=== PATIENT | male | born 1960 | race Caucasian/White ===

== ENCOUNTER 2018-09-26 17:12 | Emergency (ER) | payer OTHER, MEDICAID ==
--- NOTE | 2018-09-26 18:14 | Emergency Department Record ---
History of Present Illness - General Chief Complaint: Laceration(s) Stated Complaint: LT INDEX ROTOR INJURY Time Seen by Provider: 09/26/18 18:08 Source: Patient Mode of Arrival: Ambulatory Limitations: No limitations - History of Present Illness Initial Commments: 58 yo male presents to ED for evaluation following injury to the left index finger. Patient reports that he was using router at home when he accidentally injured the index finger resulting in laceration, tissue loss, and bleeding. Patient denies the use of anticoagulation medications, denies loss of ROM on examination. 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 Tetanus is UTD. Onset/Timin -: Hour(s) Extremity Location: Left: Hand Place: Home Context: Accidental Associated Symptoms: None Treatments Prior to Arrival: Bandage - [place] Coma Scale Eye Response: (4) Open spontaneously Motor Response: (6) Obeys commands Verbal Response: (5) Oriented [place] Total: 15 - Related Data Hx Tetanus Toxoid Vaccination: Yes Year of Tetanus Vaccination: 2018 Patient Tetanus UTD (within 5 yrs): Yes Home Medications Medication Instructions Recorded Confirmed Last Taken Cyanocobalamin (Vitamin B-12) 5,000 mcg PO DAILY 09/26/18 09/26/18 Unknown [B-12 Dual Spectrum] Omeprazole 20 mg PO DAILY 09/26/18 09/26/18 Unknown Previous Rx's Medication Instructions Recorded Doxycycline Hyclate 100 mg PO BID #19 cap 09/26/18 Allergies Allergy/AdvReac Type Severity Reaction Status Date / Time Sulfa (Sulfonamide Allergy SWELLING Verified 09/26/18 17:56 Antibiotics) (GENERAL) Travel Screening - Travel/Exposure Within Last 30 Days Have you traveled within the last 30 days?: No Review of Systems Constitutional: Denies: Chills, Fever, Malaise, Night sweats Eyes: Denies: Eye discharge, Eye pain ENT: Denies: Congestion, Ear pain, Epistaxis Respiratory: Denies: Cough, Dyspnea Cardiovascular: Denies: Chest pain, Dyspnea on exertion Endocrine: Denies: Fatigue, Heat or cold intolerance Gastrointestinal: Denies: Abdominal pain, Nausea, Vomiting Genitourinary: Denies: Incontinence, Retention Musculoskeletal: Reports: Arthralgia. Denies: Back pain, Gout, Joint swelling Skin: Reports: Other (Bleeding). Denies: Bruising, Change in color Neurological: Denies: Abnormal gait, Confusion, Headache, Numbness, Tingling Psychiatric: Denies: Anxiety Hematological/Lymphatic: Denies: Anemia, Blood Clots Past Medical History - SOCIAL HISTORY Smoking Status: Current every day smoker Alcohol Use: None Drug Use: None - RESPIRATORY Hx Respiratory Disorders: No - CARDIOVASCULAR Hx Cardio Disorders: No - NEURO Hx Neuro Disorders: No - GI Hx GI Disorders: No - Hx Genitourinary Disorders: No - ENDOCRINE Hx Endocrine Disorders: No - MUSCULOSKELETAL Hx Musculoskeletal Disorders: Yes Hx Back Injury: Yes Comment:: herniated disc in neck - PSYCH Hx Psych Problems: No - HEMATOLOGY/ONCOLOGY Hx Hematology/Oncology Disorders: Yes Hx Cancer: Yes (leukemia (in remission), skin cancer) Family Medical History Any Significant Family History?: No Physical Exam - General General Appearance: Alert, Oriented x3, Cooperative, Mild distress Limitations: No limitations - Head Head exam: Atraumatic, Normocephalic, Normal inspection Head exam detail: negative: Abrasion, Contusion, Lang's sign, General tenderness, Hematoma, Laceration - Eye Eye exam: Normal appearance. negative: Conjunctival injection, Periorbital swelling, Periorbital tenderness, Scleral icterus - ENT Ear exam: negative: Auricular hematoma, Auricular trauma Nasal Exam: negative: Active bleeding, Discharge, Dried blood, Foreign body Mouth exam: negative: Drooling, Laceration, Muffled voice, Tongue elevation - Neck Neck exam: Normal inspection. negative: Meningismus, Tenderness - Respiratory Respiratory exam: Normal lung sounds bilaterally. negative: Respiratory distress, Rhonchi, Stridor, Wheezes - Cardiovascular Cardiovascular Exam: Regular rate, Normal rhythm, Normal heart sounds - GI/Abdominal GI/Abdominal exam: Soft. negative: Distended, Rebound, Rigid, Tenderness - Rectal Rectal exam: Deferred - exam: Deferred - Extremities Extremities exam: Tenderness, Other (Tissue loss, lacerations involving the tuft/nail of the left index finger, flexion/extension appear intact at the DIP on examination.). negative: Pedal edema - Back Back exam: Denies: CVA tenderness (R), CVA tenderness (L) - Neurological Neurological exam: Alert, Normal gait, Oriented X3 - Psychiatric Psychiatric exam: Normal affect, Normal mood - Skin Skin exam: Normal color. negative: Abrasion Type of lesion: negative: abrasion Course Vital Signs 09/26/18 17:52 Temperature 98.6 F Pulse Rate 65 Respiratory 18 Rate Blood Pressure 147/92 Pulse Ox 97 - Reevaluation(s) Reevaluation #1: 09/26/18 18:49 Left index finger: Comminuted distal phalanx fracture Patient was updated on radiograph results, digital block performed that has improved his pain symptoms. Wound cannot be closed primarily in the ED due to tissue loss. Will clean the wound extensively, dress the wound and refer to Dr. Padilla. Radiographs and wound description were discussed with Dr. Padilla, he is in agreement with the plan of care as discussed and will see the patient in the office in 1-2 days. Will initiate Doxycycline prior to discharge as well, patient reports that he has oxycodone at home for his pain symptoms. Procedures - Nerve Block Consent Obtained: Verbal consent Time Out Performed: Yes Local Anesthetic Used: Lidocaine 1% Amount of anesthesia used: 3 Side: Left Nerve Blocks: Digital Procedure Successful: Yes Complications: None Patient Tolerated Procedure: Good Disposition Disposition: Discharge Clinical Impression: Fracture, finger, distal phalanx, open Qualifiers: Encounter type: initial encounter Finger: index finger Fracture alignment: displaced Laterality: left Qualified Code(s): S62.631B - Displaced fracture of distal phalanx of left index finger, initial encounter for open fracture Disposition: Home, Self-Care Condition: (2) Stable Instructions: Laceration (ED) Additional Instructions: Return to ED if your symptoms worsen or if you have any concerns. Doxycycline as directed. Follow-up with Dr. Padilla in the office in 1-3 days as directed for further evaluation. Prescriptions: Doxycycline Hyclate 100 mg PO BID #19 cap Referrals: LINA PADILLA M.D. [MEDICAL DOCTOR] - Forms: Patient Portal Access Time of Disposition: 18:52 Quality - Quality Measures Quality Measures: N/A - Blood Pressure Screening Does Patient Have Any of the Following: No Blood Pressure Classification: Hypertensive Reading Systolic Measurement: 147 Diastolic Measurement: 92 Screening for High Blood Pressure: < First Hypertensive BP, F/U Documented > [G8950] First Hypertensive Follow-up Interventions: Referral to alternative/primary care provider.
[2018-09-26] MEDS ORDERED: DOXYCYCLINE HYCLATE 100 MG CAPSULE PO ONE (18:48)
--- NOTE | 2018-09-27 12:42 | RADIOLOGY REPORT ---
EXAM: LEFT INDEX FINGER, THREE VIEWS HISTORY: LACERATION TO DISTAL LEFT INDEX FINGER. TECHNIQUE: Three views of the left index finger were obtained. Comparison: None. Encounter: Initial. FINDINGS: Comminuted and markedly displaced fracture throughout the tuft of the left second distal phalanx. This is consistent with a compound fracture given patient's history of laceration. No other fracture or dislocation. Mild degenerative changes at the interphalangeal joints. IMPRESSION: COMMINUTED AND MARKEDLY DISPLACED FRACTURE OF THE TUFT OF THE LEFT [id number] DISTAL PHALANX. JOB NUMBER: [id number] MTDD
== END 2018-09-26 19:16 | disposition home or self-care (01) ==
LOC: ER 17:12
DX: S62.637B Displaced fracture of distal phalanx of left little finger, initial encounter for open fracture (principal); W31.2XXA Contact with powered woodworking and forming machines, initial encounter; Y92.009 Unspecified place in unspecified non-institutional (private) residence as the place of occurrence of the external cause; Z85.6 Personal history of leukemia; F17.210 Nicotine dependence, cigarettes, uncomplicated
CPT/HCPCS: 64450; 73140; 99284